=== PATIENT | male | born 1945 | race Caucasian/White ===

== ENCOUNTER 2016-09-09 10:31 | Day surgery (SDC) | payer MEDICARE, OTHER, MEDICAID ==
[2016-09-09] VITALS (9 sets, daily range): BP systolic 93–149; BP diastolic 49–73; PULSE 51–63; TEMP 97–97.2
[~2016-09-09] VITALS: Ht 185.4 cm; Wt 117.0 kg
[~2016-09-09 10:31] MED LIST: ABILIFY2 MG PO; ASPIRIN E.C. 8181 MG PO; ATROVENTNS0.03% NS; COMBIRESP IH; COZAAR 50MG50 MG/TAB PO; FLOMAX 0.40.4 MG/CAP PO; GLUCOPHAGE1000 MG PO; KLONOPIN2 MG PO; LANTUS100 U/ML SC; LOPRESSOR 225 MG/TAB PO; LYRICA300 MG PO; MELAT3MGTAB PO; MOBIC15 MG PO; MYCOSTATIN100000 U/G TP; NATURAL POTASS595 MG PO; NOVOLOG 100U100 U/M1 SQ; PRILOSEC 20MG20 MG PO; REQUIP2 MG PO; RESTORIL 1515 MG/CAP PO; SINEMET 25/101 UDTAB PO; SYNTHROID0.175 MG PO; THEO-DUR 2200 MG/TAB PO; ULTRAM 50MG TAB50 MG PO; XANAX 1MG1 MG PO; ZOCOR 40MG40 MG PO; ZOLOFT 100MG100 MG PO; ZYRTEC 10MG10 MG PO
[2016-09-09] MEDS ORDERED: ABILIFY5 MG PO ×2 (11:33→11:36)
[2016-09-09 11:46] LABS: HEMATOCRIT 41.1 % (42.0-52.0); HEMOGLOBIN 13.4 g/dl (13.5-18.0); MEAN CELL VOLUME 92 fl (80.0-100.0); MEAN CORPUSCULAR HEMOGLOBIN 30 pg (27.0-31.0); MEAN CORPUSCULAR HGB CONC 33 g/dl (33.0-37.0); MEAN PLATELET VOLUME 10.2 fl (7.4-10.4); PLATELET COUNT 130 K/mm3 (130-400); RED BLOOD COUNT 4.49 M/mm3 (4.20-5.60); REDCELL DISTRIBUTION WIDTH-CV 12.2 % (11.5-14.5); WHITE BLOOD COUNT 5.8 K/mm3 (4.8-10.8)
[2016-09-09] MEDS ORDERED: PRILOSEC 20MG20 MG (11:46)
[2016-09-09] MEDS ORDERED: REMERON30 MG PO (11:51)
[2016-09-09] MEDS ORDERED: DESYREL DIVIDO150 M1 (11:51)
[2016-09-09] MEDS ORDERED: LANTUS100 U/ML ×2 (11:53→11:58)
[2016-09-09 11:54] LABS: INR 1.2 (0.8-3.0)
[2016-09-09] MEDS ORDERED: DALIRESP500 MCG PO (11:54)
[2016-09-09] MEDS ORDERED: IMDUR 30MG30 MG/TAB PO (11:55)
[2016-09-09] MEDS ORDERED: JANUVIA50 MG PO (11:56)
[2016-09-09] MEDS ORDERED: LASIX 20MG TABL20 MG (11:57)
[2016-09-09 11:58] LABS: ADJUSTED CALCIUM 9.3 mg/dL (8.4-10.2); ALBUMIN 3.6 gm/dL (3.5-5.0); BILIRUBIN,TOTAL 0.8 mg/dL (0.0-1.0); CREATININE, serum 0.99 mg/dL (0.66-1.25); POTASSIUM 4.3 mmol/L (3.4-5.0); TOTAL PROTEIN 6.8 gm/dL (6.4-8.2)
[2016-09-09] MEDS ORDERED: ULTRAM 50MG TAB50 MG PO (12:00)
[2016-09-09] MEDS ORDERED: ZEBETA 5MG5 MG PO (14:53)
== END 2016-09-09 16:25 | disposition home or self-care (01) ==
LOC: EUO 10:31
PROVIDERS: Internal Medicine Cardiovascular Disease
DX: I20.9 Angina pectoris, unspecified (principal); I10 Essential (primary) hypertension; R94.39 Abnormal result of other cardiovascular function study; Z95.1 Presence of aortocoronary bypass graft; E11.9 Type 2 diabetes mellitus without complications; J44.9 Chronic obstructive pulmonary disease, unspecified; G47.33 Obstructive sleep apnea (adult) (pediatric); E78.00 Pure hypercholesterolemia, unspecified
CPT/HCPCS: C1760; C1769; C1894; J2250; J3010; Q9967